=== PATIENT | male | born 1975 | race Hispanic/Latino ===

== ENCOUNTER 2024-05-09 13:14 | Emergency (ER) | payer SELFPAY ==
[2024-05-09 13:29] VITALS: BP 130/71
--- NOTE | 2024-05-09 13:30 | ED.GENMED ---
ED Provider Triage
<Shanel Medina PA-C - Last Filed: 05/09/24 18:59>
-
Patient seen by provider in Triage?: Seen in Triage
Attestation: A medical screening examination has been initiated by a qualified medical provider. Based on the assessment performed at this time, it has been determined that an emergent medical condition may exist and the patient has been informed
that further medical evaluation and possible additional diagnostic testing may be needed.
HPI: 49yoM here with a posterior headache x 1 week. No trauma. No nausea, vomiting, visual changes. No history of headaches. His friend has a history brain bleed and he wants to make sure everything is okay.
GENERAL: Alert , in no apparent distress
EYE: No visual abnormalities.
NECK: Trachea midline
ENT: No visible abnormalities.
LUNGS: No acute respiratory distress
NEUROLOGICAL: Alert and oriented
SKIN: Skin intact. No visible changes.
MUSCULOSKELETAL: Moving extremities normally
PSYCH: Normal and appropriate interaction.
This is a medical evaluation conducted in person to initiate diagnostic evaluation and provide initial therapeutics. Please see further documentation by the treating clinician.
CT head ordered.
History of Present Illness
<Shanel Medina PA-C - Last Filed: 05/09/24 18:59>
General
Chief Complaint: Headache
Time Seen by Provider: 05/09/24 14:41
<Nora Cuevas PA-C - Last Filed: 05/09/24 18:57>
General
Source: patient
Exam Limitations: none
Nursing documentation reviewed up to this point in time: agreed with
History of Present Illness
History of Present Illness:
This is a 49 y/o male with no PMH presents emergency department today with concerns of posterior headache that is been going on for the past week. Patient states that when the headache first started, it started gradually while he was working and
states that he took Advil and found initial relief with this. Patient then reports that he started to have this headache every day and again it does improve with Advil but the pain returns immediately after the Advil wears off. Patient is
especially concerned because he had a friend who suffered from a brain bleed. Patient denies any visual changes, visual loss, facial pain, head or neck trauma, dizziness, lightheadedness, syncopal episodes, photophobia, nausea, vomiting. Patient
denies any numbness or tingling on one-sided body, facial droop, confusion, difficulty walking.
Review of Systems
<Nora Cuevas PA-C - Last Filed: 05/09/24 18:57>
Review of Systems
All Other Systems: ROS reviewed and negative except as documented in HPI and ROS
Phy Exam
<Nora Cuevas PA-C - Last Filed: 05/09/24 18:57>
Physical Exam
Physical Exam:
General: Patient is well appearing and in no acute distress; non-toxic
Skin: Warm and dry, no rashes or lesions
Head: Normocephalic, atraumatic
Eyes: Sclera non-icteric. EOMs intact. PERRLA.
Cardiac: Regular rate and rhythm, no murmurs
Pulm: Normal respiratory effort
Abdomen: No abdominal tenderness
Neuro: CN II-XII intact, no focal neurologic deficits. Normal finger to nose, heel to chirinos testing. Normal gait. Sensation intact.
Psychiatric: Appropriate mood and affect.
Course
<Shanel Medina PA-C - Last Filed: 05/09/24 18:59>
Orders/Labs/Results
Orders:
Orders
05/09/24 13:33
CT Head W/o Iv Contrast Urgent
Comment:
Reason For Exam: Headache x 1 week
05/09/24 15:34
Diphenhydramine [Benadryl] 12.5 mg IV NOW STA
Ketorolac [Toradol] 15 mg IV NOW STA
Metoclopramide [Reglan] 10 mg IV NOW STA
05/09/24 15:35
0.9% Sodium Chloride 500 ml [Nss] 500 ml IV BOLUS
Vital Signs
Initial and Last Documented VS:
Initial Vital Signs
Temp Pulse Resp BP Pulse Ox
98.5 F 80 18 130/71 97
05/09/24 13:29 05/09/24 13:29 05/09/24 13:29 05/09/24 13:29 05/09/24 13:29
Last Documented Vital Signs
Temp Pulse Resp BP Pulse Ox
98.5 F 83 18 127/84 98
05/09/24 13:29 05/09/24 18:00 05/09/24 18:00 05/09/24 18:00 05/09/24 18:00
Natalylt;Nora Cuevas PA-C - Last Filed: 05/09/24 18:57>
Orders/Labs/Results
Orders:
Orders
05/09/24 13:33
CT Head W/o Iv Contrast Urgent
Comment:
Reason For Exam: Headache x 1 week
05/09/24 15:34
Diphenhydramine [Benadryl] 12.5 mg IV NOW STA
Ketorolac [Toradol] 15 mg IV NOW STA
Metoclopramide [Reglan] 10 mg IV NOW STA
05/09/24 15:35
0.9% Sodium Chloride 500 ml [Nss] 500 ml IV BOLUS
Vital Signs
Initial and Last Documented VS:
Initial Vital Signs
Temp Pulse Resp BP Pulse Ox
98.5 F 80 18 130/71 97
05/09/24 13:29 05/09/24 13:29 05/09/24 13:29 05/09/24 13:29 05/09/24 13:29
Last Documented Vital Signs
Temp Pulse Resp BP Pulse Ox
98.5 F 83 18 127/84 98
05/09/24 13:29 05/09/24 18:00 05/09/24 18:00 05/09/24 18:00 05/09/24 18:00
<Nora Cuevas PA-C - Last Filed: 05/09/24 18:57>
MDM/Problems Addressed
Differential Diagnosis Includes:
ddx include tension headache, migraine headache, cluster headache, subarachnoid hemorrhage
MDM/Problems Addressed:
49-year-old male presents emergency department today with concerns of a week of a posterior headache. The headache was not sudden in onset, it came on gradually. Patient finds pain relief with ibuprofen. He currently rates the pain an 8 out of
10. He has a nonfocal neurologic exam. He had no history of head or neck trauma. He has no signs of trauma on exam. CT of the head was obtained which showed no acute intracranial normalities. Patient was given Reglan, Toradol and Benadryl to
IV. Patient notes that this did help his headache and he feels better. Highly doubt subarachnoid hemorrhage, patient likely suffering from a tension versus migraine headache. [place] subarachnoid hemorrhage rule patient scored 0, can be ruled out
clinically. Patient stable for discharge. Did give information for an [facility] clinic for follow-up
Chronic conditions affecting care:
n/a
Acute Exacerbation and/or Progression of Chronic Illness:
n/a
<Nora Cuevas PA-C - Last Filed: 05/09/24 18:57>
*Pulse Oximetry
Patient hypoxic: no
*Critical Care Note
Total Time (30-74mins, 75-104mins- exclusive of procedures): Not Applicable
Data Reviewed
Review of Other/Old Records Reveals: Records (No previous ER physician documentation) and Discharge Summary (No discharge summary to review)
Source: patient and records
Prescriptions/Medications Considered But Not Given:
n/a
Further Testing Considered But Not Given:
n/a
<Nora Cuevas PA-C - Last Filed: 05/09/24 18:57>
Patient Management
Escalation/DeEscalation of care consider admission/obs:
reviewed case with my attending dr randall
ED Attending Note
<Shanel Medina PA-C - Last Filed: 05/09/24 18:59>
-
Portions of this chart may have been created with voice recognition software.� Occasional wrong word or��sound alike� substitutions may have occurred due to the inherent limitations of voice recognition software.
Discharge Plan
Departure
Patient Disposition: Home (Routine Discharge)
Date of Disposition: 05/09/24
Time of Disposition: 17:03
Patient with high blood pressure during this ER visit?: Yes
Condition: Good
Discharge Problem:
Tension headache
Instructions: Headache, Adult (DC), BLOOD PRESSURE
Referrals:
NONE,* [Family Provider] -
Activity Restrictions/Additional Instructions:
Please call [phone] to talk to [facility] to schedule an appointment for follow up.
Please return to the emergency department should you experience acute worsening of your symptoms, visual loss, visual changes, neck pain, head or neck trauma, syncopal episode, fevers or chills, persistent nausea or vomiting, or any other signs or
symptoms concerning to you.
Interventions
Interventions:
*Risk Screen - Suicide Last Done: 05/09/24 13:29
*General Assessment Last Done: 05/09/24 15:57
*Neglect/Abuse Screening Last Done: 05/09/24 13:29
*ED COVID-19 Vaccine History Last Done: 05/09/24 13:29
*Nursing Disposition Last Done: 05/09/24 18:00
ED- Neurological Assessment Last Done: 05/09/24 14:40
Discharge Date and Time
Discharge Date/Time: 05/09/24 18:01
Print Language: [email or web address]
[2024-05-09] MEDS: NSS 500 IV (15:52)
[2024-05-09] MEDS: TORADOL 15 MG IV (15:53)
[2024-05-09] MEDS: REGLAN 10 MG IV (15:54)
[2024-05-09] MEDS: BENADRYL 12.5 MG IV (15:56)
[2024-05-09 18:00] VITALS: BP 127/84
== END 2024-05-09 18:01 | disposition home or self-care (01) ==
LOC: EMR 13:14
PROVIDERS: EMERGENCY PHYSICIAN Emergency Medicine
DX: G44.209 Tension-type headache, unspecified, not intractable (principal)
CPT/HCPCS: 96374; 96375; 96361; 99284; 70450